=== PATIENT | female | born 2000 | race Caucasian/White ===

== ENCOUNTER 2020-03-04 21:28 | Emergency (ER) | payer MEDICAID ==
[~2020-03-04] VITALS: Ht 167.6 cm; Wt 70.3 kg
[2020-03-04 21:47] VITALS: BP 136/73
--- NOTE | 2020-03-04 22:37 | NUR ---
PT EVALUATED AND DISCHARGED BY JOSE DE JESUS BROWN. ALL RELEVANT TEACHING AND MEDICATION INSTRUCTIONS PROVIDED BY DR. BROWN. PT GIVEN RX OF DEXAMETHASONE.
== END 2020-03-04 22:37 | disposition home or self-care (01) ==
LOC: MED 21:28
DX: O26.891 Other specified pregnancy related conditions, first trimester (principal); R50.9 Fever, unspecified; R68.83 Chills (without fever); Z3A.10 10 weeks gestation of pregnancy
CPT/HCPCS: 81002; 99283